=== PATIENT | female | born 1965 | race Caucasian/White ===

== ENCOUNTER 2018-10-13 19:37 | Emergency (ER) | payer BC ==
[2018-10-13 20:22] VITALS: BP 156/90
[2018-10-13] MEDS ORDERED: Gelfoam 12-7 ADSORBABL SPONGE* 1 EA SPONGE TOPICAL ONE (20:35)
[2018-10-13] MEDS ORDERED: Tetan/Diph/Pertus SYR(Tdap)* 0.5 ML SYR(BOOSTRIX) use SYR IM ONE (20:36)
--- NOTE | 2018-10-13 20:41 | UC ---
Skin Complaint HPI - HPI Summary HPI Summary: 52-year-old woman comes in with a chief complaint of a laceration to the left middle finger. She was using a knife and slicing when she accidentally sliced through the fingernail of the left middle finger. The avulsion injury approximately 1 cm in diameter. Bleeding stopped with direct pressure. Pain is worse with palpation. Patient is not sure if she is up-to-date with her tetanus. - History of Current Complaint Chief Complaint: UCLaceration Time Seen by Provider: 10/13/18 20:28 Stated Complaint: FINGER LACERATION Hx Last Menstrual Period: 10/05/18 Pain Intensity: 3 - Allergy/Home Medications Allergies/Adverse Reactions: Allergies Allergy/AdvReac Type Severity Reaction Status Date / Time Sulfa (Sulfonamide Allergy Hives Verified 10/13/18 20:22 Antibiotics) Home Medications: Home Medications Atenolol 25 mg PO DAILY WITH MEAL 10/13/18 [History Confirmed 10/13/18] PMH/Surg Hx/FS Hx/Imm Hx Previously Healthy: Yes Cardiovascular History: Hypertension - Surgical History Surgical History: Yes Surgery Procedure, Year, and Place: PYLORIC STENOSIS - Family History Known Family History: Positive: Non-Contributory - Social History Alcohol Use: Weekly Substance Use Type: Marijuana Smoking Status (MU): Never Smoked Tobacco Review of Systems All Other Systems Reviewed And Are Negative: Yes Constitutional: Positive: Negative Skin: Positive: Other - SEE HPI Eyes: Positive: Negative ENT: Positive: Negative Respiratory: Positive: Negative Cardiovascular: Positive: Negative Gastrointestinal: Positive: Negative Motor: Positive: Negative Neurovascular: Positive: Negative Musculoskeletal: Positive: Negative Neurological: Positive: Negative Psychological: Positive: Negative Is Patient Immunocompromised?: No Physical Exam Triage Information Reviewed: Yes Appearance: Well-Appearing, No Pain Distress, Well-Nourished Vital Signs: Initial Vital Signs Temp 97.8 F 10/13/18 20:18 Pulse 77 10/13/18 20:18 Resp 18 10/13/18 20:18 BP 156/90 10/13/18 20:18 Pulse Ox 100 10/13/18 20:18 Vital Signs Reviewed: Yes Eye Exam: Normal Eyes: Positive: Conjunctiva Clear Neck exam: Normal Neck: Positive: Supple Respiratory: Positive: No respiratory distress Musculoskeletal Exam: Normal Musculoskeletal: Positive: Strength Intact, ROM Intact Neurological Exam: Normal Neurological: Positive: Alert, Muscle Tone Normal Psychological Exam: Normal Psychological: Positive: Age Appropriate Behavior Skin: Positive: Other - Left middle finger has an avulsion laceration through the fingernail 1 cm in diameter. No active bleeding at this time. The rest of the finger has normal capillary refill and normal sensation and full range of motion full-strength. Course/Dx - Course Course Of Treatment: No sutures due to laceration being an avulsion. - Diagnoses Provider Diagnosis: Laceration of left middle finger with damage to nail Discharge - Sign-Out/Discharge Documenting (check all that apply): Patient Departure All imaging exams completed and their final reports reviewed: No Studies - Discharge Plan Condition: Stable Disposition: HOME Patient Education Materials: Laceration Without Closure (ED) Referrals: Herbert Sheets MD [Primary Care Provider] - Additional Instructions: FOLLOW UP WITH YOUR DOCTOR IF NOT COMPLETELY IMPROVED. YOU WERE GIVEN THE TDAP IMMUNIZATION TODAY. GET RECHECKED SOONER FOR ANY WORSENING OF YOUR CONDITION OR QUESTIONS OR CONCERNS. - Billing Disposition and Condition Condition: STABLE Disposition: Home
== END 2018-10-13 21:00 | disposition home or self-care (01) ==
LOC: UCEAST 19:37
DX: S61.213A Laceration without foreign body of left middle finger without damage to nail, initial encounter (principal); I10 Essential (primary) hypertension; Z88.2 Allergy status to sulfonamides; Z79.899 Other long term (current) drug therapy; W26.0XXA Contact with knife, initial encounter; Y92.9 Unspecified place or not applicable
CPT/HCPCS: 90471; 90715; 99212; A9270-GY; G0463